=== PATIENT | female | born 1975 | race African-American/Black ===

== ENCOUNTER 2017-06-05 16:05 | Emergency (ER) | payer MEDICAID, MEDICARE ==
[~2017-06-05] VITALS: Ht 172.7 cm; Wt 89.8 kg
[2017-06-05 16:07] VITALS: BP 110/73
[2017-06-05] MEDS ORDERED: DEXAMETHASONE 4 MG TABLET PO ONE (16:30)
[2017-06-05] MEDS ORDERED: KETOROLAC 30 MG/1 ML IM ONE (16:30)
[2017-06-05] MEDS ORDERED: KETOROLAC 30 MG/1 ML ONE (16:42)
[2017-06-05] MEDS ORDERED: DEXAMETHASONE 4 MG TABLET ONE ×2 (16:42→16:44)
== END 2017-06-05 17:09 | disposition home or self-care (01) ==
LOC: ED 16:55
DX: J02.0 Streptococcal pharyngitis (principal); B34.9 Viral infection, unspecified; J45.909 Unspecified asthma, uncomplicated
CPT/HCPCS: 96372; 99283; J1885

== ENCOUNTER 2017-06-12 19:18 | Emergency (ER) | payer MEDICAID ==
[~2017-06-12] VITALS: Ht 172.7 cm; Wt 82.0 kg
[2017-06-12] MEDS ORDERED: METOCLOPRAMIDE 5 MG/ML, 2ML IVPush ONE (20:00)
[2017-06-12] MEDS ORDERED: DIPHENHYDRAMINE 50 MG/ML, 1ML IVPush ONE (20:00)
[2017-06-12] MEDS ORDERED: SODIUM CHLORIDE 0.9% 1,000ML IVBOLUS ONE (20:00)
[2017-06-12] MEDS ORDERED: KETOROLAC 30 MG/1 ML IVPush ONE (20:00)
[2017-06-12] MEDS ORDERED: SODIUM CHLORIDE FLUSH 10ML SYR IVF ONE (20:00)
[2017-06-12] MEDS ORDERED: KETOROLAC 30 MG/1 ML ONE (20:10)
[2017-06-12] MEDS ORDERED: DIPHENHYDRAMINE 50 MG/ML, 1ML ONE (20:10)
[2017-06-12] MEDS ORDERED: METOCLOPRAMIDE 5 MG/ML, 2ML ONE (20:10)
[2017-06-12 20:24] VITALS: BP 143/89
== END 2017-06-12 21:32 | disposition home or self-care (01) ==
LOC: ED 19:30
DX: R51 Headache (principal); R11.2 Nausea with vomiting, unspecified; F41.9 Anxiety disorder, unspecified; J45.909 Unspecified asthma, uncomplicated
CPT/HCPCS: 96361; 96374; 96375; 99284; J1200; J1885; J2765; J7030

== ENCOUNTER 2018-07-04 03:46 | Emergency (ER) | payer MEDICARE, MEDICAID ==
[~2018-07-04] VITALS: Ht 172.7 cm; Wt 81.1 kg
[2018-07-04] MEDS ORDERED: ASPIRIN 81 MG TABLET CHEW ONE (05:28)
[2018-07-04] MEDS ORDERED: LORazepam 1MG TABLET ONE (05:28)
[2018-07-04] MEDS ORDERED: LORazepam 1MG TABLET PO ONE (05:30)
[2018-07-04] MEDS ORDERED: ASPIRIN 81 MG TABLET CHEW PO ONE (05:30)
[2018-07-04 05:47] LABS: BASOPHILS # (AUTO) 0.04 x10^3/uL (0-0.1); BASOPHILS % (AUTO) 1 % (0-1); EOSINOPHILS # (AUTO) 0.37 x10^3/uL (0-0.4); EOSINOPHILS % (AUTO) 7 % (1-7); LYMPHOCYTES # (AUTO) 1.58 x10^3/uL (1-3.4); LYMPHOCYTES % (AUTO) 32 % (22-44); MD NO; MEAN CORPUSCULAR HEMOGLOBIN 30.9 pg (27.0-34.8); MEAN CORPUSCULAR HGB CONC 33.3 g/dL (32.4-35.8); MEAN CORPUSCULAR VOLUME 92.6 fL (80-100); MEAN PLATELET VOLUME 8.9 fL (7.4-10.4); MONOCYTES # (AUTO) 0.44 x10^3/uL (0.2-0.8); MONOCYTES % (AUTO) 9 % (2-9); NEUTROPHILS # (AUTO) 2.59 x10^3/uL (1.8-6.8); NEUTROPHILS % (AUTO) 52 % (42-75); PLATELET COUNT 200 x10^3/uL (130-400); RED BLOOD COUNT 3.82 x10^6/uL (3.82-5.3); RED CELL DISTRIBUTION WIDTH 16.6 % (9.6-15.2)
[2018-07-04 05:58] LABS: ALBUMIN 3.4 g/dL (3.4-5.0); ANION GAP 4 mmol/L (5-15); CALCIUM 8.6 mg/dL (8.5-10.1); CHLORIDE 110 mmol/L (98-107)
[2018-07-04 06:02] LABS: TROPONIN I < 0.015 ng/mL (0.000-0.045)
[2018-07-04 06:37] VITALS: BP 118/80
== END 2018-07-04 06:44 | disposition home or self-care (01) ==
LOC: ED 06:30
DX: F41.1 Generalized anxiety disorder (principal); J45.909 Unspecified asthma, uncomplicated; M06.9 Rheumatoid arthritis, unspecified
CPT/HCPCS: 36415; 71046; 80048; 82040; 84484; 85025; 93005; 99285

== ENCOUNTER 2018-07-26 08:23 | Emergency (ER) | payer MEDICARE, MEDICAID ==
[~2018-07-26] VITALS: Ht 172.7 cm; Wt 82.2 kg
[2018-07-26 08:28] VITALS: BP 112/58
[2018-07-26] MEDS ORDERED: IBUPROFEN 200 MG TABLET ONE (09:11)
[2018-07-26] MEDS ORDERED: IBUPROFEN 200 MG TABLET PO ONE (09:30)
== END 2018-07-26 12:02 | disposition home or self-care (01) ==
LOC: ED 09:41
DX: M25.461 Effusion, right knee (principal); G89.11 Acute pain due to trauma; F41.1 Generalized anxiety disorder; J45.909 Unspecified asthma, uncomplicated; M06.9 Rheumatoid arthritis, unspecified
CPT/HCPCS: 29505; 99284